=== PATIENT | male | born 1980 | race Caucasian/White ===

== ENCOUNTER 2019-08-01 11:01 | Emergency (ER) | payer SELFPAY ==
[~2019-08-01] VITALS: Ht 165.1 cm; Wt 92.5 kg
[2019-08-01 11:27] VITALS: BP 138/65
--- NOTE | 2019-08-01 11:35 | NUR ---
38 Y/O MALE AMBULATED TO BED 6, C/O LOWER BACK PAIN (RIGHT /LEFT) THAT RADIATES DOWN THE LEFT LEG X 2 WEEKS AND BACK STIFFNESS AGRAVATED BY AMBULATION. PAIN 6/10. DENIES N/V/D; SKIN IS PINK/WARM/DRY; AAOX4 WITH EVEN AND STEADY GAIT; PT DENIES ANY FEVER, CP, SOB, OR COUGH AT THIS TIME; VSS; PATIENT POSITIONED FOR COMFORT; HOB ELEVATED; BEDRAILS UP X1; BED DOWN AND LOCKED. PT TOOK MOTRIN LAST NIGHT BUT WOKE UP THIS MORNIG WITH 10/10 PAIN AND APPLIED A FENTANYL PATCH TO HIS LOWER BACK. MEDICAL HX: DENIES NKA
--- NOTE | 2019-08-01 12:05 | NUR ---
Maribeth delaney in [facility] - 08/01/19 at [email or web address] ALFARO AT BEDSIDE EXAMINING PT
--- NOTE | 2019-08-01 12:10 | NUR ---
AT BEDSIDE EXAMINING PT
[2019-08-01 12:36] VITALS: BP 138/65
== END 2019-08-01 12:30 | disposition home or self-care (01) ==
LOC: MED 11:01
DX: M54.5 Low back pain (principal); I10 Essential (primary) hypertension
CPT/HCPCS: 99281